=== PATIENT | male | born 1980 | race Caucasian/White ===

== ENCOUNTER 2016-05-27 21:46 | Emergency (ER) | payer OTHER ==
[2016-05-27] MEDS ORDERED: Sodium Chloride 0.9% 1,000 ML IV ONE (21:52)
[2016-05-27] MEDS ORDERED: Thiamine 100 MG in Sodium Chloride 0.9% 100 ML IV ONE (21:52)
--- NOTE | 2016-05-27 22:00 | EDM.PDOC ---
ED HPI GENERAL MEDICAL PROBLEM - General Chief Complaint: General Stated Complaint: WITHDRAWAL Time Seen by Provider: 05/27/16 21:51 - History of Present Illness INITIAL COMMENTS - FREE TEXT/NARRATIVE: HISTORY AND PHYSICAL: History of present illness: Patient 35-year-old male with history of alcoholism sober for 5 years 4 days prior he started drinking and presents today for evaluation he denied suicidal homicidal ideation he said no vomiting no diarrhea no other complaints he requests medical screening exam Review of systems: As per history of present illness and below otherwise all systems reviewed and negative. Past medical history: As per history of present illness and as reviewed below otherwise noncontributory. Surgical history: As per history of present illness and as reviewed below otherwise noncontributory. Social history: No reported history of drug or alcohol abuse. Family history: As per history of present illness and as reviewed below otherwise noncontributory. Physical exam: HEENT: Atraumatic, normocephalic, pupils reactive, negative for conjunctival pallor or scleral icterus, mucous membranes moist, throat clear, neck supple, nontender, trachea midline. Lungs: Clear to auscultation, breath sounds equal bilaterally, chest nontender. Heart: S1S2, regular, negative for clicks, rubs, or JVD. Abdomen: Soft, nondistended, nontender. Negative for masses or hepatosplenomegaly. Negative for costovertebral tenderness. Pelvis: Stable nontender. Genitourinary: Deferred. Rectal: Deferred. Extremities: Atraumatic, negative for cords or calf pain. Neurovascular unremarkable. Neuro: Awake, alert, oriented. Cranial nerves II through XII unremarkable. Cerebellum unremarkable. Motor and sensory unremarkable throughout. Exam nonfocal. Diagnostics: CBC CMP lipase Therapeutics: Normal saline 1 L bolus thiamine 100 mg IV Impression: #1 medical screening exam #2 ethanol abuse #3 history of alcoholism Definitive disposition and diagnosis as appropriate pending reevaluation and review of above. - Related Data Allergies Allergy/AdvReac Type Severity Reaction Status Date / Time No Known Allergies Allergy Verified 05/27/16 21:51 Home Meds: Home Meds . [No Known Home Meds] 05/27/16 [History] ED ROS GENERAL - Review of Systems Review Of Systems: ROS reveals no pertinent complaints other than HPI. ED EXAM, GENERAL - Physical Exam Exam: See Below (See dictation) Course - Orders/Labs/Meds Orders: Active Orders 24 hr Category Date Time Status CBC WITH AUTO DIFF [HEME] Stat Lab 05/27/16 21:52 Ordered COMPREHENSIVE METABOLIC PN,CMP [CHEM] Stat Lab 05/27/16 21:52 Ordered LIPASE [CHEM] Stat Lab 05/27/16 21:52 Ordered Sodium Chloride 0.9% [Normal Saline] 1,000 ml Med 05/27/16 21:52 Ordered IV STAT Thiamine [Vitamin B-1] 100 mg Med 05/27/16 21:52 Ordered Sodium Chloride 0.9% [Normal Saline] 100 ml IV ONETIME Medication Orders Sodium Chloride (Normal Saline) 1,000 mls @ 999 mls/hr IV STAT ONE Stop: 05/27/16 22:52 Thiamine HCl 100 mg/ Sodium (Chloride) 101 mls @ 999 mls/hr IV ONETIME ONE Stop: 05/27/16 21:58 Meds: Medications Generic Name Dose Route Start Last Admin Trade Name Freq PRN Reason Stop Dose Admin Sodium Chloride 1,000 mls @ 999 mls/hr 05/27/16 21:52 Normal Saline IV 05/27/16 22:52 STAT ONE Thiamine HCl 100 mg/ Sodium 101 mls @ 999 mls/hr 05/27/16 21:52 Chloride IV 05/27/16 21:58 ONETIME ONE Departure - Departure Time of Disposition: 21:59 Disposition: Home, Self-Care 01 Condition: good Clinical Impression: Alcoholism, Alcohol abuse, Encounter for medical screening examination Forms: ED Department Discharge Additional Instructions: The following information is given to patients seen in the emergency department who are being discharged to home. This information is to outline your options for follow-up care. We provide all patients seen in our emergency department with a follow-up referral. The need for follow-up, as well as the timing and circumstances, are variable depending upon the specifics of your emergency department visit. If you don't have a primary care physician on staff, we will provide you with a referral. We always advise you to contact your personal physician following an emergency department visit to inform them of the circumstance of the visit and for follow-up with them and/or the need for any referrals to a consulting specialist. The emergency department will also refer you to a specialist when appropriate. This referral assures that you have the opportunity for followup care with a specialist. All of these measure are taken in an effort to provide you with optimal care, which includes your followup. Under all circumstances we always encourage you to contact your private physician who remains a resource for coordinating your care. When calling for followup care, please make the office aware that this follow-up is from your recent emergency room visit. If for any reason you are refused follow-up, please contact the [facility] emergency department at and asked to speak to the emergency department charge nurse. [facility] [address] [place] [id number] Stop drinking followup primary medical doctor/clinic above 24-48 hours return as needed as discussed - My Orders Last 24 Hours: My Active Orders 05/27/16 21:52 CBC WITH AUTO DIFF [HEME] Stat COMPREHENSIVE METABOLIC PN,CMP [CHEM] Stat LIPASE [CHEM] Stat Sodium Chloride 0.9% [Normal Saline] 1,000 ml IV STAT Thiamine [Vitamin B-1] 100 mg Sodium Chloride 0.9% [Normal Saline] 100 ml IV ONETIME - Assessment/Plan Last 24 Hours: My Active Orders 05/27/16 21:52 CBC WITH AUTO DIFF [HEME] Stat COMPREHENSIVE METABOLIC PN,CMP [CHEM] Stat LIPASE [CHEM] Stat Sodium Chloride 0.9% [Normal Saline] 1,000 ml IV STAT Thiamine [Vitamin B-1] 100 mg Sodium Chloride 0.9% [Normal Saline] 100 ml IV ONETIME
[2016-05-27 22:38] LABS: CHLORIDE,CL 105 mmol/L (98-110); SODIUM,NA 141 mmol/L (136-146)
[2016-05-27 23:35] VITALS: BP 127/78
== END 2016-05-27 23:36 | disposition home or self-care (01) ==
LOC: MW.ED 21:46
DX: F10.10 Alcohol abuse, uncomplicated (principal); Z13.9 Encounter for screening, unspecified
CPT/HCPCS: 36415; 80053; 83690; 85025; 96361; 96374; 99284; J3411; J7030; J7040; 99283